=== PATIENT | female | born 1940 | race Caucasian/White ===

== ENCOUNTER → 2018-12-14 | Outpatient (CLI) | payer MEDICARE | END | disposition home or self-care (01) | LOC: CFH 12:51 | PROVIDERS: ATTEND Internal Medicine Cardiovascular Disease | DX: I08.8 Other rheumatic multiple valve diseases (principal); I10 Essential (primary) hypertension; E78.5 Hyperlipidemia, unspecified | CPT/HCPCS: 93306 ==

== ENCOUNTER 2019-07-22 04:32 | Emergency (ER) | payer MEDICARE ==
[~2019-07-22] VITALS: Ht 162.6 cm; Wt 48.8 kg
--- NOTE | 2019-07-22 04:50 | NUR ---
Pt placed on heart monitor and vitals signs monitoring, side rails up and locked, call light within reach.
[2019-07-22] MEDS ORDERED: ATOR10TA9 PO (05:00)
[2019-07-22] MEDS ORDERED: ATEN25TA PO (05:00)
[2019-07-22] MEDS ORDERED: FEXO1TAB29 PO (05:02)
[2019-07-22] MEDS ORDERED: FLUT9.9S NAS (05:02)
--- NOTE | 2019-07-22 05:23 | NUR ---
Repeat EKG, ERP updated.
[2019-07-22 05:34] LABS: BASOPHILS # (AUTO) 0.03 x10^3/uL (0-0.1); BASOPHILS % (AUTO) 1 % (0-1); EOSINOPHILS # (AUTO) 0.07 x10^3/uL (0-0.4); EOSINOPHILS % (AUTO) 1 % (1-7); LYMPHOCYTES # (AUTO) 1.39 x10^3/uL (1-3.4); LYMPHOCYTES % (AUTO) 26 % (22-44); MD NO; MEAN CORPUSCULAR HEMOGLOBIN 29.6 pg (27.0-34.8); MEAN CORPUSCULAR HGB CONC 33.7 g/dL (32.4-35.8); MEAN CORPUSCULAR VOLUME 87.9 fL (80-100); MEAN PLATELET VOLUME 8.5 fL (7.4-10.4); MONOCYTES # (AUTO) 0.33 x10^3/uL (0.2-0.8); MONOCYTES % (AUTO) 6 % (2-9); NEUTROPHILS # (AUTO) 3.44 x10^3/uL (1.8-6.8); NEUTROPHILS % (AUTO) 65 % (42-75); PLATELET COUNT 181 x10^3/uL (130-400); RED BLOOD COUNT 4.91 x10^6/uL (3.82-5.3); RED CELL DISTRIBUTION WIDTH 14.3 % (9.6-15.2)
[2019-07-22 05:46] LABS: ALANINE AMINOTRANSFERASE 31 U/L (12-78); ALBUMIN 3.9 g/dL (3.4-5.0); ANION GAP 6 mmol/L (5-15); CALCIUM 9.2 mg/dL (8.5-10.1); CHLORIDE 106 mmol/L (98-107); CREATININE 1.04 mg/dL (0.55-1.02)
[2019-07-22 05:51] LABS: ALKALINE PHOSPHATASE 89 U/L (45-117); BILIRUBIN,TOTAL 0.8 mg/dL (0.2-1.0); TOTAL PROTEIN 7.3 g/dL (6.4-8.2); TROPONIN I < 0.015 ng/mL (0.000-0.045)
--- NOTE | 2019-07-22 06:21 | NUR ---
Pt resting in [place], daughter at bedside. Awaiting CXR results.
--- NOTE | 2019-07-22 06:50 | NUR ---
Report given to Leticia BUITRAGO.
--- NOTE | 2019-07-22 07:18 | NUR ---
REPORT WAS RECEIVED AND PT. IS RESTING WITHOUT CONCERNS. PT. REMAINS MONITORED WITH THE HOB ELEVATED GREATER THAN 30 DEGREES. PT. HAS THE CALL LIGHT IN PLACE AND THE SIDERAILS ARE UP X 2. PT. WAS GIVEN A BLANKET FOR WARMTH.
--- NOTE | 2019-07-22 08:33 | NUR ---
3 P'S ADDRESSED. PT. HAS NO CONCERNS AT THIS TIME.
[2019-07-22 08:38] LABS: TROPONIN I < 0.015 ng/mL (0.000-0.045)
--- NOTE | 2019-07-22 08:58 | NUR ---
PT. WAS GIVEN DISCHARGE INSTRUCTIONS WITH UNDERSTANDING VERBALIZED. PT.'S IV WAS DCD', CATH TIP INTACT. PRESSURE HELD WITH HEMOSTASIS ACHIEVED. PT. WAS AMBULATORY WITH A STEADY GAIT TO DISCHARGE.
[2019-07-22 08:59] VITALS: BP 132/82
== END 2019-07-22 09:02 | disposition home or self-care (01) ==
LOC: ED 08:30
DX: R00.2 Palpitations (principal); E78.00 Pure hypercholesterolemia, unspecified; R07.89 Other chest pain; R00.0 Tachycardia, unspecified
CPT/HCPCS: 36415; 71045; 80053; 83735; 84443; 84484; 85025; 93005; 99284

== ENCOUNTER → 2020-01-19 | Outpatient (CLI) | payer MEDICARE ==
[~2020-01-19] MED LIST: ATEN25TA PO; ATOR10TA9 PO; FEXO1TAB29 PO; FLUT9.9S NAS
== END | disposition home or self-care (01) ==
LOC: CFH 14:57
PROVIDERS: ATTEND Internal Medicine Cardiovascular Disease
DX: I08.3 Combined rheumatic disorders of mitral, aortic and tricuspid valves (principal)
CPT/HCPCS: 93306

== ENCOUNTER 2021-02-06 22:52 | Emergency (ER) | payer MEDICARE ==
[~2021-02-06] VITALS: Ht 162.6 cm; Wt 49.8 kg
[2021-02-06 23:55] LABS: BASOPHILS % (AUTO) 1 % (0-1); EOSINOPHILS % (AUTO) 1 % (1-7); LYMPHOCYTES % (AUTO) 19 % (22-44); MEAN CORPUSCULAR HEMOGLOBIN 29.5 pg (27.0-34.8); MEAN CORPUSCULAR HGB CONC 33.7 g/dL (32.4-35.8); MEAN PLATELET VOLUME 8.2 fL (7.4-10.4); MONOCYTES % (AUTO) 6 % (2-9); NEUTROPHILS % (AUTO) 74 % (42-75); PLATELET COUNT 153 x10^3/uL (130-400); RED BLOOD COUNT 4.51 x10^6/uL (3.82-5.3); RED CELL DISTRIBUTION WIDTH 15.1 % (9.6-15.2)
[2021-02-07 00:06] LABS: ALBUMIN 3.5 g/dL (3.4-5.0); ANION GAP 6 mmol/L (5-15); CALCIUM 9.5 mg/dL (8.5-10.1); CHLORIDE 102 mmol/L (98-107); CREATININE 0.95 mg/dL (0.55-1.02)
[2021-02-07 00:10] LABS: TROPONIN I < 0.015 ng/mL (0.000-0.045)
[2021-02-07] MEDS ORDERED: OMNIPAQUE 350 MG/ML, 75ML BOTTLE ONE (00:46)
--- NOTE | 2021-02-07 02:00 | NUR ---
PT AMBULATORY W/ A STEADY GAIT TO THE BR.
[2021-02-07 03:20] VITALS: BP 127/58
== END 2021-02-07 03:23 | disposition home or self-care (01) ==
LOC: ED 23:45
DX: R42 Dizziness and giddiness (principal); M54.2 Cervicalgia; R00.2 Palpitations; E78.00 Pure hypercholesterolemia, unspecified; Z88.0 Allergy status to penicillin; Z88.1 Allergy status to other antibiotic agents; Z88.2 Allergy status to sulfonamides
CPT/HCPCS: 36415; 70498; 80048; 82040; 84484; 85025; 93005; 99285; Q9967